=== PATIENT | male | born 2000 | race Caucasian/White ===

== ENCOUNTER 2020-05-14 17:56 | Emergency (ER) | payer BC ==
[~2020-05-14] VITALS: Ht 190.5 cm; Wt 108.2 kg
--- NOTE | 2020-05-14 19:21 | NUR ---
DE ICER INSTALLER: PT AMBULATORY TO ROOM WITH STEADY GAIT FROM [facility] AT THIS TIME WITH IMPORTER OR EXPORTER
[2020-05-14 19:50] VITALS: BP 131/81
--- NOTE | 2020-05-14 19:58 | NUR ---
Patient given discharge instructions and they have confirmed that they understand the instructions. Patient ambulatory with steady gait.
== END 2020-05-14 20:01 | disposition home or self-care (01) ==
LOC: ED 19:45
DX: S62.337A Displaced fracture of neck of fifth metacarpal bone, left hand, initial encounter for closed fracture (principal); X58.XXXA Exposure to other specified factors, initial encounter; Y93.89 Activity, other specified; Y92.009 Unspecified place in unspecified non-institutional (private) residence as the place of occurrence of the external cause; Y99.8 Other external cause status
CPT/HCPCS: 29125; 99283